=== PATIENT | female | born 1995 | race Caucasian/White ===

== ENCOUNTER 2016-07-19 00:17 | Emergency (ER) | payer OTHER ==
[2016-07-19] MEDS ORDERED: IOPAMIDOL 370 (76%) 100 ML VIAL IV ONE (00:18)
[2016-07-19] MEDS ORDERED: MORPHINE SULFATE 4 MG/ML SYRINGE ONE (02:01)
[2016-07-19] MEDS ORDERED: SODIUM CHLORIDE 0.9% 1,000 ML ONE (02:01)
[2016-07-19] MEDS ORDERED: ONDANSETRON 4 MG/2ML 2 ML VIAL ONE ×2 (02:01→02:07)
[2016-07-19 02:04] LABS: ABSOLUTE NEUTROPHIL COUNT 9.8 K/mm3 (1.8-7.7); BASO % 0.2 % (0.2-1.0); EOS # 0.2 (0.0-0.5); EOS % 1.4 % (0.9-2.9); HEMATOCRIT 33.2 % (37.0-47.0); HEMOGLOBIN 11.3 gm/l (12.0-16.0); IMM NEUT # 0.1 K/mm3 (0-0.2); IMM NEUT% 0.4 % (0-1); LYMPH % 15.8 % (15-45); MEAN CELL VOLUME 84.5 fl (81.0-99.0); MEAN CORPUSCULAR HEMOGLOBIN 28.8 pg (27.0-31.0); MEAN PLATELET VOLUME 9.4 fl (7.4-10.4); MONO # 0.6 (0.0-0.8); MONO % 4.5 % (4-12); NEUT % 77.7 % (43-75); PLATELET COUNT 252 K/mm3 (130-400)
[2016-07-19 02:16] LABS: SPECIFIC GRAVITY 1.025 (1.001-1.030); URINE BILIRUBIN NEGATIVE (NEGATIVE); URINE BLOOD 4+ (NEGATIVE); URINE GLUCOSE (UA) NEGATIVE (NEGATIVE); URINE LEUKOCYTE ESTERASE NEGATIVE (NEGATIVE); URINE NITRITE NEGATIVE (NEGATIVE); URINE PROTEIN 1+ (NEGATIVE)
[2016-07-19 02:18] LABS: ALB/GLOB RATIO 1.7 (>1.0); ALBUMIN 4.3 gm/dL (3.5-5.7); CALCIUM 9.2 mg/dL (8.6-10.3)
[2016-07-19 02:22] LABS: URINE APPEARANCE HAZY; URINE COLOR AMBER; URINE UROBILINOGEN 8 mg/dL (0-1 mg/dl)
[2016-07-19 02:26] LABS: URINE BACTERIA 1+
[2016-07-19] MEDS ORDERED: FAMOTIDINE 10 MG/ML 2ML VIAL ONE (02:32)
[2016-07-19] MEDS ORDERED: PIPERACILLIN SODIUM/TAZOBACTAM 3.375 G VIAL IV ONE (04:03)
[2016-07-19] MEDS ORDERED: SODIUM CHLORIDE 0.9% 100 ML IV ONE (04:03)
--- NOTE | 2016-07-19 07:32 | US ---
Exam: Gallbladder ultrasound COMPARISON: CT chest 07/19/[address] abdomen 02/14/2015 INDICATION: Gallbladder distention seen on CT. Patient describes right upper quadrant pain with nausea and vomiting. FINDINGS: Gallbladder ultrasound was obtained. Gallbladder is distended. Several small gallstones are present. There is no gallbladder wall thickening or pericholecystic fluid. The gallbladder wall is 3 mm. [employer] Supervisor did report a positive sonographic Muniz sign. The common hepatic duct is normal at 5 mm; the distal common bile duct was not visualized. 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 Consider HIDA scan for further evaluation if indicated. Preliminary report transmitted to the emergency department from [employer] at 0347 hours 07/19/2016.
--- NOTE | 2016-07-19 07:35 | CT ---
Exam: CT angiogram chest with contrast Comparison: CT abdomen 02/14/2015 History: Epigastric pain radiating to the back for 2 nights, worse this evening. Chest pain and difficulty breathing. Technique: CT angiogram of the chest was obtained following the administration of 80 mL Isovue-370 intravenous contrast using a CT angiogram pulmonary embolism protocol which was supplemented with multiplanar 3-D reformations constructed at an independent workstation. Findings: Examination is slightly limited due to motion artifact although examination is still deemed diagnostic. There is no evidence of acute pulmonary thromboembolic disease through the proximal subsegmental level. Lung volumes are low. There is no focal airspace disease. There is no pleural or pericardial effusion. There is no significant mediastinal or hilar lymphadenopathy by size criteria. Limited evaluation of the upper abdomen is without acute or concerning abnormality. No worrisome osseous abnormality is identified. IMPRESSION: Negative CT angiogram of the chest. Preliminary report transmitted to the emergency department from [employer] at 0332 hours 07/19/2016.
== END 2016-07-19 04:50 | disposition other institution (70) ==
LOC: ED 00:17
DX: K81.0 Acute cholecystitis (principal); R10.11 Right upper quadrant pain
CPT/HCPCS: 83690; 85379; 84703; 85025; 87040; 80053; 81001; 71275; 76705; 96375 ×3; 99284; 96361 ×2; 96365; 93005; 99285; J2270; J2405 ×2; J7030; J7050; J2543; Q9967

== ENCOUNTER 2016-07-22 20:39 | Emergency (ER) | payer OTHER ==
[2016-07-22] MEDS ORDERED: LACTATED RINGERS 1,000 ML ONE (21:01)
[2016-07-22] MEDS ORDERED: ONDANSETRON 4 MG/2ML 2 ML VIAL ONE (21:01)
[2016-07-22] MEDS ORDERED: HYDROMORPHONE HCL 0.5 MG/0.5 ML SYRINGE ONE ×2 (21:01→22:26)
[2016-07-22 21:27] LABS: ABSOLUTE NEUTROPHIL COUNT 4.2 K/mm3 (1.8-7.7); BASO % 0.3 % (0.2-1.0); EOS # 0.2 (0.0-0.5); EOS % 3.1 % (0.9-2.9); HEMATOCRIT 35.7 % (37.0-47.0); HEMOGLOBIN 12.1 gm/l (12.0-16.0); IMM NEUT% 0.3 % (0-1); LYMPH # 2.2 (1.0-4.8); LYMPH % 30.7 % (15-45); MEAN CELL VOLUME 82.8 fl (81.0-99.0); MEAN CORPUSCULAR HEMOGLOBIN 28.1 pg (27.0-31.0); MEAN CORPUSCULAR HGB CONC 33.9 g/dl (33.0-37.0); MEAN PLATELET VOLUME 9.7 fl (7.4-10.4); MONO # 0.5 (0.0-0.8); MONO % 6.8 % (4-12); NEUT % 58.8 % (43-75); PLATELET COUNT 330 K/mm3 (130-400); RED CELL DISTRIBUTION WIDTH 13.9 % (11.5-14.5)
[2016-07-22 21:37] LABS: ALB/GLOB RATIO 1.4 (>1.0); ALBUMIN 4.2 gm/dL (3.5-5.7); CALCIUM 9.2 mg/dL (8.6-10.3)
[2016-07-22 22:24] LABS: SPECIFIC GRAVITY 1.015 (1.001-1.030); URINE BILIRUBIN 2+ (NEGATIVE); URINE BLOOD 4+ (NEGATIVE); URINE GLUCOSE (UA) NEGATIVE (NEGATIVE); URINE LEUKOCYTE ESTERASE 2+ (NEGATIVE); URINE NITRITE NEGATIVE (NEGATIVE); URINE PROTEIN TRACE (NEGATIVE)
[2016-07-22 22:28] LABS: URINE APPEARANCE SL CLOUDY; URINE COLOR AMBER; URINE UROBILINOGEN 4 mg/dL (0-1 mg/dl)
[2016-07-22 22:33] LABS: URINE BACTERIA 3+; URINE EPITHELIAL CELLS PACKED /hpf; URINE MUCUS 2+; URINE WBC 15-20 /hpf
[2016-07-22] MEDS ORDERED: MORPHINE SULFATE 4 MG/ML SYRINGE ONE (22:36)
[2016-07-22] MEDS ORDERED: PROCHLORPERAZINE 5 MG/ML 2 ML VIAL ONE (23:46)
--- NOTE | 2016-07-23 06:58 | US ---
ABDOMINAL-LIMITED COMPARISON: Gallbladder ultrasound 07/19/2016 and CTA chest 07/19/2016 HISTORY: Right upper quadrant pain 3 days after cholecystectomy. FINDINGS: Area scanned: Gallbladder fossa Gallbladder: Removed Free fluid: Slip of free fluid in the gallbladder fossa 21.1 mm x 3.9 mm x 5.8 mm. Common hepatic duct: 3 mm. Common bile duct: 5 mm. IMPRESSION: 1. Nonspecific small amount of free fluid in the gallbladder fossa. Differential diagnosis: Normal postoperative fluid versus bile leak. Preliminary report by [facility] radiologist Javier Banerjee MD 07/22/2016 at 21:57
== END 2016-07-23 00:17 | disposition short-term general hospital (02) ==
LOC: ED 20:39
DX: R10.11 Right upper quadrant pain (principal); R94.5 Abnormal results of liver function studies; Z90.49 Acquired absence of other specified parts of digestive tract; R11.0 Nausea; R39.198 Other difficulties with micturition